=== PATIENT | female | born 2000 | race Caucasian/White ===

== ENCOUNTER 2018-06-02 20:33 | Emergency (ER) | payer OTHER ==
[~2018-06-02] VITALS: Ht 160 cm; Wt 85.3 kg
--- OUTSIDE RECORDS SUMMARY | 2018-06-02 20:39 | XMS REPORT | Continuity of Care Document ---
Author Author [facility] Organization [facility] Address Unknown Phone Unavailable Allergies There is no data. Medications There is no data. Problems Date Dx Coded Attending Type Code Diagnosis Diagnosed By 06/02/2018 KEMAL TRINIDAD MD Ot 719.42 JOINT PAIN-UP/ARM 06/02/2018 KEMAL TRINIDAD MD Ot 959.3 ELB/FOREARM/WRST INJ NOS 06/02/2018 KEMAL TRINIDAD MD Ot E849.0 ACCIDENT IN HOME 06/02/2018 KEMAL TRINIDAD MD Ot E888.9 FALL NOS Procedures There is no data. Results There is no data. Encounters ACCT No. Visit Date/Time Discharge Status Pt. Type Provider Facility Loc./Unit Complaint [id number] 10/04/2013 15:03:00 10/04/2013 23:59:59 CLS Outpatient KEMAL TRINIDAD MD [facility] RAD RT ELBOW PAIN [id number] 06/02/2018 20:35:00 ACT Emergency REBEKAH ARDON DO [facility] ER CHEST PAIN,ABD PAIN
[2018-06-02] MEDS ORDERED: KETOROLAC 30 MG/ML VIAL IVP ONE (21:15)
[2018-06-02] MEDS ORDERED: ONDANSETRON 4 MG/2 ML (SDV) Z0FRAN IVP ONE (21:15)
[2018-06-02] MEDS ORDERED: fentaNYL INJECTION 100 MCG/2 ML AMP IVP ONE ×2 (21:15→22:30)
[2018-06-02] MEDS ORDERED: NS IV 1000 ML 1,000 ML IV SCH (21:15)
--- NOTE | 2018-06-02 21:25 | ED Abdominal Pain ---
General Stated Complaint: CHEST PAIN,ABD PAIN Source of Information: Patient Exam Limitations: No Limitations History of Present Illness Date Seen by Provider: Jun 02, 2018 Time Seen by Provider: 21:24 Initial Comments To ER per private vehicle with reports of right upper quadrant abdominal pain for the past 2-3 days, central chest pain since earlier today. No fevers or chills. She has had associated nausea. No history of this pain ever before. She states the pain was 12 out of 10 earlier and it had her crying but currently she rates it a 7 out of 10. Timing/Duration: 1-2 Days Severity/Quality: Moderate Location: RUQ Radiation: Chest Activities at Onset: None Allergies and Home Medications Allergies Coded Allergies: No Known Drug Allergies (Unverified , 06/02/18) Patient Home Medication List Home Medication List Reviewed: Yes Review of Systems Review of Systems Constitutional: see HPI EENTM: No Symptoms Reported Respiratory: No Symptoms Reported Cardiovascular: No Symptoms Reported Gastrointestinal: See HPI, Abdominal Pain, Nausea Genitourinary: No Symptoms Reported Musculoskeletal: no symptoms reported Skin: no symptoms reported Psychiatric/Neurological: No Symptoms Reported Endocrine: No Symptoms Reported Hematologic/Lymphatic: No Symptoms Reported Past Nhmzgvj-Fiiuzo-Jwlcjk Hx Patient Social History Recent Foreign Travel: Yes ([place]) Contact w/Someone Who Travel: Yes Physical Exam Vital Signs Vital Signs - First Documented 06/02/18 21:13 Temp 98.4 Pulse 94 Resp 18 B/P (MAP) 140/92 (108) Capillary Refill : Height/Weight/BMI Height: '" Weight: lbs. oz. kg; BMI Method: General Appearance: WD/WN, no apparent distress HEENT: PERRL/EOMI, normal ENT inspection Respiratory: no respiratory distress, no accessory muscle use Gastrointestinal: normal bowel sounds, soft, tenderness (right upper quadrant) Extremities: normal range of motion, non-tender Neurologic/Psychiatric: alert, normal mood/affect, oriented x 3 Skin: normal color, warm/dry Progress/Results/Core Measures Results/Orders Lab Results Laboratory Tests Test 06/02/18 21:10 06/02/18 21:23 Range/Units Urine Color YELLOW Urine Clarity CLEAR Urine pH 7 5-9 Urine Specific [place] 1.010 L 1.016-1.022 Urine Protein NEGATIVE NEGATIVE Urine Glucose (UA) NEGATIVE NEGATIVE Urine Ketones NEGATIVE NEGATIVE Urine Nitrite NEGATIVE NEGATIVE Urine Bilirubin NEGATIVE NEGATIVE Urine Urobilinogen NORMAL NORMAL MG/DL Urine Leukocyte Esterase 3+ H NEGATIVE Urine RBC (Auto) NEGATIVE NEGATIVE Urine RBC NONE /HPF Urine WBC 25-50 H /HPF Urine Squamous Epithelial Cells 10-25 H /HPF Urine Crystals NONE /LPF Urine Bacteria FEW H /HPF Urine Casts NONE /LPF Urine Mucus NEGATIVE /LPF Urine Culture Indicated YES White Blood Count 9.3 4.3-11.0 10^3/uL Red Blood Count 4.33 L 4.35-5.85 10^6/uL Hemoglobin 12.7 11.5-16.0 G/DL Hematocrit 36 35-52 % Mean Corpuscular Volume 82 80-99 FL Mean Corpuscular Hemoglobin 29 25-34 PG Mean Corpuscular Hemoglobin Concent 36 32-36 G/DL Red Cell Distribution Width 11.9 10.0-14.5 % Platelet Count 338 130-400 10^3/uL Mean Platelet Volume 9.4 7.4-10.4 FL Neutrophils (%) (Auto) 61 42-75 % Lymphocytes (%) (Auto) 32 12-44 % Monocytes (%) (Auto) 6 0-12 % Eosinophils (%) (Auto) 2 0-10 % Basophils (%) (Auto) 0 0-10 % Neutrophils # (Auto) 5.6 1.8-7.8 X 10^3 Lymphocytes # (Auto) 3.0 1.0-4.0 X 10^3 Monocytes # (Auto) 0.5 0.0-1.0 X 10^3 Eosinophils # (Auto) 0.2 0.0-0.3 10^3/uL Basophils # (Auto) 0.0 0.0-0.1 10^3/uL My Orders Orders - FREDDY MENDOZA APRN Ketorolac Injection (Toradol Injection) (06/02/18 21:15) Fentanyl Injection (Sublimaze Injection (06/02/18 21:15) Ondansetron Injection (Zofran Injectio (06/02/18 21:15) Ns Iv 1000 Ml (Sodium Chloride 0.9%) (06/02/18 21:15) Ct Abdomen/Pelvis W (06/02/18 21:15) Cbc With Automated Diff (06/02/18 21:15) Comprehensive Metabolic Panel (06/02/18 21:15) Ua Culture If Indicated (06/02/18 21:15) Lipase (06/02/18 21:15) Urine Bedside (06/02/18 21:15) Iohexol Injection (Omnipaque 350 Mg/Ml 1 (06/02/18 21:30) Received Contrast (Contrast Received) (06/02/18 21:30) Urine Culture (06/02/18 21:10) Medications Given in ED Current Medications Medications Dose Ordered Sig/Kaci Route Start Time Stop Time Status Last Admin Dose Admin Iohexol 100 ml ONCE ONCE IV 06/02/18 21:30 06/02/18 21:31 DC 06/02/18 21:54 100 ML Vital Signs/I&O 06/02/18 21:13 Temp 98.4 Pulse 94 Resp 18 B/P (MAP) 140/92 (108) Diagnostic Imaging Diagonstic Imaging: CT Comments NAME: COREY PULIDO MED REC#: [id number] PT STATUS: REG ER : 2000 PHYSICIAN: FREDDY MENDOZA APRN ADMIT DATE: 06/02/18/ER Signed Date of Exam:06/02/18 CT ABDOMEN/PELVIS W PROCEDURE: CT abdomen and pelvis with contrast. TECHNIQUE: Multiple contiguous axial images were obtained through the abdomen and pelvis after administration of intravenous contrast. INDICATION: Right upper quadrant pain with nausea. FINDINGS: The air-containing appendix visualized and normal. The uterus, adnexa and urinary bladder unremarkable. There is no evidence for diverticulitis. There is no bowel, biliary or urinary tract obstruction. No free air. No abscess, hematoma or other acute fluid collection. The liver, spleen, adrenals, pancreas and gallbladder appeared normal. The unobstructed kidneys appeared normal. No abdominal wall defect. The osseous structures and lung bases were nonacute. Colonic fecal load was normal. No ileus or obstruction. IMPRESSION: Unremarkable CT abdomen and pelvis. No obstructive features, inflammatory process or acute abnormalities identified. Dictated by: Dictated on workstation # [id number] Dict: 06/02/182147 Trans: 06/02/182152 [id number] Interpreted by: MEGAN SERRANO Electronically signed by: MEGAN SERRANO 06/02/182152 Departure Communication (Admissions) NAME: COREY PULIDO MED REC#: [id number] PT STATUS: REG ER : 2000 PHYSICIAN: FREDDY MENDOZA APRN ADMIT DATE: 06/02/18/ER Signed Date of Exam:06/02/18 CT ABDOMEN/PELVIS W PROCEDURE: CT abdomen and pelvis with contrast. TECHNIQUE: Multiple contiguous axial images were obtained through the abdomen and pelvis after administration of intravenous contrast. INDICATION: Right upper quadrant pain with nausea. FINDINGS: The air-containing appendix visualized and normal. The uterus, adnexa and urinary bladder unremarkable. There is no evidence for diverticulitis. There is no bowel, biliary or urinary tract obstruction. No free air. No abscess, hematoma or other acute fluid collection. The liver, spleen, adrenals, pancreas and gallbladder appeared normal. The unobstructed kidneys appeared normal. No abdominal wall defect. The osseous structures and lung bases were nonacute. Colonic fecal load was normal. No ileus or obstruction. IMPRESSION: Unremarkable CT abdomen and pelvis. No obstructive features, inflammatory process or acute abnormalities identified. Dictated by: Dictated on workstation # [id number] Dict: 06/02/182147 Trans: 06/02/182152 [id number] Interpreted by: MEGAN SERRANO Electronically signed by: MEGAN SERRANO 06/02/182152 Impression Primary Impression: Right upper quadrant abdominal pain Additional Impression: Urinary tract infection Qualified Codes: N30.00 - Acute cystitis without hematuria Disposition: 01 HOME, SELF-CARE Condition: Stable Departure-Patient Inst. Decision time for Depature: 21:25 Referrals: RAJWINDER,LOCAL PHYSICIAN (PCP) Primary Care Physician FAM ROACH (Family) Primary Care Physician Patient Instructions: Urinary Tract Infection, Adult (DC) Add. Discharge Instructions: 1. Follow-up with your regular healthcare provider later this week to discuss obtaining an ultrasound of the gallbladder. In the meantime low-fat bland diet without dairy products, pain medication as needed. Antibiotic as directed for the bladder infection. Scripts Pantoprazole Sodium (Protonix) 40 Mg Tablet. 40 MG PO DAILY, #20 TAB Prov: FREDDY MENDOZA APRN 06/02/18 Sulfamethoxazole/Trimethoprim (Bactrim Ds Tablet) 1 Each Tablet 1 EACH PO BID, #10 TAB Prov: FREDDY MENDOZA APRN 06/02/18 Work/School Note: Work Release Form Date Seen in the Emergency Department: Jun 02, 2018 Return to Work: Jun 04, 2018 FREDDY MENDOZA APRN Jun 02, 2018 21:25
[2018-06-02 21:30] LABS: BILIRUBIN,URINE NEGATIVE (NEGATIVE); CLARITY,URINE CLEAR; COLOR,URINE YELLOW; GLUCOSE, URINE (UA) NEGATIVE (NEGATIVE); KETONES,URINE NEGATIVE (NEGATIVE); NITRITE,URINE NEGATIVE (NEGATIVE); PROTEIN,URINE NEGATIVE (NEGATIVE); UROBILINOGEN,URINE NORMAL (NORMAL)
[2018-06-02] MEDS ORDERED: IOHEXOL 350 MG/ML 100 ML (OMNIPAQUE 350) VIAL IV ONE (21:30)
[2018-06-02] MEDS ORDERED: RECEIVED CONTRAST 20 ML VIAL IV SCH (21:30)
[2018-06-02 21:32] LABS: LEUKOCYTE ESTERASE ,URINE 3+ (NEGATIVE); PH,URINE 7 (5-9)
[2018-06-02 21:38] LABS: BASOPHILS % (AUTO) 0 % (0-10); EOSINOPHILS # (AUTO) 0.2 10^3/uL (0.0-0.3); EOSINOPHILS % (AUTO) 2 % (0-10); HEMATOCRIT 36 % (35-52); HEMOGLOBIN 12.7 G/DL (11.5-16.0); LYMPHOCYTES % (AUTO) 32 % (12-44); MEAN CORPUSCULAR HEMOGLOBIN 29 PG (25-34); MEAN CORPUSCULAR HGB CONC 36 G/DL (32-36); MEAN CORPUSCULAR VOLUME 82 FL (80-99); MEAN PLATELET VOLUME 9.4 FL (7.4-10.4); MONOCYTES # (AUTO) 0.5 X 10^3 (0.0-1.0); MONOCYTES % (AUTO) 6 % (0-12); NEUTROPHILS # (AUTO) 5.6 X 10^3 (1.8-7.8); NEUTROPHILS % (AUTO) 61 % (42-75); PLATELET COUNT 338 10^3/uL (130-400); RED CELL DISTRIBUTION WIDTH 11.9 % (10.0-14.5); WHITE BLOOD COUNT 9.3 10^3/uL (4.3-11.0)
[2018-06-02 21:41] LABS: BACTERIA,URINE FEW /HPF; WBC,URINE 25-50 /HPF
--- NOTE | 2018-06-02 21:53 | Diagnostic Imaging Report ---
PROCEDURE: CT abdomen and pelvis with contrast. TECHNIQUE: Multiple contiguous axial images were obtained through the abdomen and pelvis after administration of intravenous contrast. INDICATION: Right upper quadrant pain with nausea. FINDINGS: The air-containing appendix visualized and normal. The uterus, adnexa and urinary bladder unremarkable. There is no evidence for diverticulitis. There is no bowel, biliary or urinary tract obstruction. No free air. No abscess, hematoma or other acute fluid collection. The liver, spleen, adrenals, pancreas and gallbladder appeared normal. The unobstructed kidneys appeared normal. No abdominal wall defect. The osseous structures and lung bases were nonacute. Colonic fecal load was normal. No ileus or obstruction. IMPRESSION: Unremarkable CT abdomen and pelvis. No obstructive features, inflammatory process or acute abnormalities identified. Dictated by: Dictated on workstation # [id number]
[2018-06-02] MEDS ORDERED: SULF1TAB35 PO (21:58)
[2018-06-02] MEDS ORDERED: PANT40TA2 PO (21:58)
[2018-06-02 22:06] LABS: ALANINE AMINOTRANSFERASE 12 U/L (0-55); ALBUMIN 4.4 GM/DL (3.2-4.5); ALKALINE PHOSPHATASE 73 U/L (40-136); BILIRUBIN,TOTAL 0.3 MG/DL (0.1-1.0); BUN/CREATININE RATIO 11; CALCIUM 9.3 MG/DL (8.5-10.1); CARBON DIOXIDE 22 MMOL/L (21-32); CHLORIDE 108 MMOL/L (98-107); CREATININE SERUM 0.76 MG/DL (0.60-1.30); GFR ESTIMATED > 60; GLUCOSE 103 MG/DL (70-105); LIPASE 20 U/L (8-78); POTASSIUM 3.6 MMOL/L (3.6-5.0); SODIUM 141 MMOL/L (135-145); TOTAL PROTEIN 7.5 GM/DL (6.4-8.2)
[2018-06-02] MEDS ORDERED: RX-ONDANSETRON 4 MG ODT (ZOFRAN) PPK #4 PO STA (22:26)
[2018-06-02] MEDS ORDERED: TRIM/SULFAMETH 160/800 (SEPTRA DS) TAB PO ONE (22:30)
[2018-06-02] MEDS ORDERED: RX-HYDROCODONE/APAP 5/325 MG #4 TAB PK PO PRN (22:30)
[2018-06-02 22:55] VITALS: BP 138/89
[2018-06-05] MEDS ORDERED: ACHD5005 PO (10:59)
== END 2018-06-02 22:58 | disposition home or self-care (01) ==
LOC: EDUNIT# 20:33 → ER 20:35
DX: N39.0 Urinary tract infection, site not specified (principal)
CPT/HCPCS: 36415; 74177; 80053; 81000; 83690; 84703; 85025; 87088

== ENCOUNTER 2018-06-04 16:34 | Day surgery (SDC) | payer OTHER ==
[~2018-06-04] VITALS: Ht 160 cm; Wt 86.7 kg
[~2018-06-04 16:34] MED LIST: PANT40TA2 PO; SULF1TAB35 PO
--- OUTSIDE RECORDS SUMMARY | 2018-06-04 16:38 | XMS REPORT | Continuity of Care Document ---
Author Author [facility] Organization [facility] Address Unknown Phone Unavailable Allergies Active Description Code Type Severity Reaction Onset Reported/Identified Relationship to Patient Clinical Status Yes No Known Drug Allergies [id number] Drug Allergy Unknown N/A 06/02/2018 Medications There is no data. Problems Date Dx Coded Attending Type Code Diagnosis Diagnosed By 06/02/2018 KEMAL TRINIDAD MD Ot 719.42 JOINT PAIN-UP/ARM 06/02/2018 KEMAL TRINIDAD MD Ot 959.3 ELB/FOREARM/WRST INJ NOS 06/02/2018 KEMAL TRINIDAD MD Ot E849.0 ACCIDENT IN HOME 06/02/2018 KEMAL TRINIDAD MD Ot E888.9 FALL NOS 06/02/2018 KEMAL TRINIDAD MD Ot 719.42 JOINT PAIN-UP/ARM 06/02/2018 KEMAL TRINIDAD MD Ot 959.3 ELB/FOREARM/WRST INJ NOS 06/02/2018 KEMAL TRINIDAD MD Ot E849.0 ACCIDENT IN HOME 06/02/2018 KEMAL TRINIDAD MD Ot E888.9 FALL NOS 06/04/2018 FREDDY MENDOZA APRN Ot N39.0 URINARY TRACT INFECTION, SITE NOT SPECIF 06/04/2018 FREDDY MENDOZA APRN Ot R10.11 RIGHT UPPER QUADRANT PAIN Procedures There is no data. Results Test Result Range Complete urinalysis with reflex to culture - 06/02/18 21:10 Urine color determination YELLOW NRG Urine clarity determination CLEAR NRG Urine pH measurement by test strip 7 5-9 Specific gravity of urine by test strip 1.010 1.016- 1.022 Urine protein assay by test strip, semi-quantitative NEGATIVE NEGATIVE Urine glucose detection by automated test strip NEGATIVE NEGATIVE Erythrocytes detection in urine sediment by light microscopy NEGATIVE NEGATIVE Urine ketones detection by automated test strip NEGATIVE NEGATIVE Urine nitrite detection by test strip NEGATIVE NEGATIVE Urine total bilirubin detection by test strip NEGATIVE NEGATIVE Urine urobilinogen measurement by automated test strip (mass/volume) NORMAL NORMAL Urine leukocyte esterase detection by dipstick 3+ NEGATIVE Automated urine sediment erythrocyte count by microscopy (number/high power field) NONE NRG Automated urine sediment leukocyte count by microscopy (number/high power field ) [HPF] NRG Bacteria detection in urine sediment by light microscopy FEW NRG Squamous epithelial cells detection in urine sediment by light microscopy 10-25 NRG Crystals detection in urine sediment by light microscopy NONE NRG Casts detection in urine sediment by light microscopy NONE NRG Mucus detection in urine sediment by light microscopy NEGATIVE NRG Complete urinalysis with reflex to culture YES NRG Bacterial urine culture - 06/02/18 21:10 Bacterial urine culture 3 OR MORE NRG COLONY COUNT >100,000/ML NRG FTX;REPORTABLE (GRAM POSITIVE) SUGGESTING PROBABLE NRG FREE TEXT ENTRY 2 COLLECTION CONTAMINATION WITH SKIN ELISE NRG FREE TEXT ENTRY 3 NO SUSCEPTIBILITY PERFORMED NRG Complete blood count (CBC) with automated white blood cell (WBC) differential - 06/02/18 21:23 Blood leukocytes automated count (number/volume) 9.3 10*3/uL 4.3-11.0 Blood erythrocytes automated count (number/volume) 4.33 10*6/uL 4.35-5.85 Venous blood hemoglobin measurement (mass/volume) 12.7 g/dL 11.5-16.0 Blood hematocrit (volume fraction) 36 % 35-52 Automated erythrocyte mean corpuscular volume 82 [foz_us] 80-99 Automated erythrocyte mean corpuscular hemoglobin (mass per erythrocyte) 29 pg 25-34 Automated erythrocyte mean corpuscular hemoglobin concentration measurement ( mass/volume) 36 g/dL 32-36 Automated erythrocyte distribution width ratio 11.9 % 10.0-14.5 Automated blood platelet count (count/volume) 338 10*3/uL 130-400 Automated blood platelet mean volume measurement 9.4 [foz_us] 7.4-10.4 Automated blood neutrophils/100 leukocytes 61 % 42-75 Automated blood lymphocytes/100 leukocytes 32 % 12-44 Blood monocytes/100 leukocytes 6 % 0-12 Automated blood eosinophils/100 leukocytes 2 % 0-10 Automated blood basophils/100 leukocytes 0 % 0-10 Blood neutrophils automated count (number/volume) 5.6 10*3 1.8-7.8 Blood lymphocytes automated count (number/volume) 3.0 10*3 1.0-4.0 Blood monocytes automated count (number/volume) 0.5 10*3 0.0-1.0 Automated eosinophil count 0.2 10*3/uL 0.0-0.3 Automated blood basophil count (count/volume) 0.0 10*3/uL 0.0-0.1 Comprehensive metabolic panel - 06/02/18 21:23 Serum or plasma sodium measurement (moles/volume) 141 mmol/L 135-145 Serum or plasma potassium measurement (moles/volume) 3.6 mmol/L 3.6-5.0 Serum or plasma chloride measurement (moles/volume) 108 mmol/L 98-107 Carbon dioxide 22 mmol/L 21-32 Serum or plasma anion gap determination (moles/volume) 11 mmol/L 5-14 Serum or plasma urea nitrogen measurement (mass/volume) 8 mg/dL 7-18 Serum or plasma creatinine measurement (mass/volume) 0.76 mg/dL 0.60-1.30 Serum or plasma urea nitrogen/creatinine mass ratio 11 NRG Serum or plasma creatinine measurement with calculation of estimated glomerular filtration rate > NRG Serum or plasma glucose measurement (mass/volume) 103 mg/dL 70-105 Serum or plasma calcium measurement (mass/volume) 9.3 mg/dL 8.5-10.1 Serum or plasma total bilirubin measurement (mass/volume) 0.3 mg/dL 0.1-1.0 Serum or plasma alkaline phosphatase measurement (enzymatic activity/volume) 73 U/L 40-136 Serum or plasma aspartate aminotransferase measurement (enzymatic activity/ volume) 16 U/L 5-34 Serum or plasma alanine aminotransferase measurement (enzymatic activity/volume ) 12 U/L 0-55 Serum or plasma protein measurement (mass/volume) 7.5 g/dL 6.4-8.2 Serum or plasma albumin measurement (mass/volume) 4.4 g/dL 3.2-4.5 CALCIUM CORRECTED 9.0 mg/dL 8.5-10.1 Lipase - 06/02/18 21:23 Lipase 20 U/L 8-78 Encounters ACCT No. Visit Date/Time Discharge Status Pt. Type Provider Facility Loc./Unit Complaint [id number] 06/02/2018 20:35:00 06/02/2018 22:58:00 DIS Outpatient FREDDY MENDOZA APRN [facility] ER CHEST PAIN,ABD PAIN [id number] 10/04/2013 15:03:00 10/04/2013 23:59:59 CLS Outpatient AMOS MORALES, KEMAL Guerrero [facility] RAD RT ELBOW PAIN [id number] 06/04/2018 16:35:00 ACT Emergency SHWETA MORALES, ELDON Rosen [facility] ER ABD PAIN,VOMITTING
[2018-06-04] MEDS ORDERED: NS IV 1000 ML 1,000 ML IV SCH ×2 (17:00→19:00)
[2018-06-04] MEDS ORDERED: fentaNYL INJECTION 100 MCG/2 ML AMP IVP ONE (17:00)
[2018-06-04] MEDS ORDERED: ONDANSETRON 4 MG/2 ML (SDV) Z0FRAN IVP ONE (17:00)
[2018-06-04 17:17] LABS: BASOPHILS % (AUTO) 0 % (0-10); EOSINOPHILS # (AUTO) 0.1 10^3/uL (0.0-0.3); EOSINOPHILS % (AUTO) 1 % (0-10); HEMATOCRIT 35 % (35-52); HEMOGLOBIN 12.4 G/DL (11.5-16.0); LYMPHOCYTES # (AUTO) 1.5 X 10^3 (1.0-4.0); LYMPHOCYTES % (AUTO) 19 % (12-44); MEAN CORPUSCULAR HEMOGLOBIN 29 PG (25-34); MEAN CORPUSCULAR HGB CONC 36 G/DL (32-36); MEAN CORPUSCULAR VOLUME 82 FL (80-99); MEAN PLATELET VOLUME 9.6 FL (7.4-10.4); MONOCYTES # (AUTO) 0.3 X 10^3 (0.0-1.0); MONOCYTES % (AUTO) 4 % (0-12); NEUTROPHILS % (AUTO) 77 % (42-75); PLATELET COUNT 324 10^3/uL (130-400); RED CELL DISTRIBUTION WIDTH 11.8 % (10.0-14.5); WHITE BLOOD COUNT 7.8 10^3/uL (4.3-11.0)
--- NOTE | 2018-06-04 17:21 | ED Abdominal Pain ---
General Chief Complaint: Abdominal/GI Problems Stated Complaint: ABD PAIN,VOMITTING Nursing Triage Note: THE PT IS AMBULATORY TO THE ROOM WITHOUT DIFFICULTY. NO DISTRESS IS SEEN ON ARRIVAL. LOC IS NORMAL FOR THE PT. THE PT WAS SEEN HERE ON THU. Sepsis Screen: No Definite Risk Source of Information: Patient Exam Limitations: No Limitations History of Present Illness Date Seen by Provider: Jun 04, 2018 Time Seen by Provider: 16:40 Initial Comments 18-year-old female who presents to the emergency room with complaints of increased nausea, vomiting and right upper quadrant abdominal pain. She was seen and evaluated in the emergency room 2 days ago and was instructed to have an outpatient ultrasound for evaluation of her gallbladder and she had an appointment at [facility] and they were going to set up an outpatient ultrasound for her. She was prescribed Protonix and Carafate for potential ulcer. She denies fevers. Timing/Duration: 4-5 Days Associated Symptoms: Nausea/Vomiting Allergies and Home Medications Allergies Coded Allergies: No Known Drug Allergies (Unverified , 06/02/18) Home Medications Pantoprazole Sodium 40 Mg Tablet.dr, 40 MG PO DAILY Prescribed by: FREDDY MENDOZA on 06/02/182157 Sulfamethoxazole/Trimethoprim 1 Each Tablet, 1 EACH PO BID Prescribed by: FREDDY MENDOZA on 06/02/182157 Patient Home Medication List Home Medication List Reviewed: Yes Review of Systems Review of Systems Constitutional: no symptoms reported, see HPI Gastrointestinal: See HPI, Abdominal Pain, Nausea, Vomiting All Other Systems Reviewed Negative Unless Noted: Yes Past Nvvonwo-Yihrxi-Bblxpp Hx Past Med/Social Hx: Reviewed Nursing Past Med/Soc Hx Patient Social History Recent Foreign Travel: No Contact w/Someone Who Travel: No Recent Infectious Disease Expo: No Recent Hopitalizations: No Physical Abuse: No Sexual Abuse: No Mistreated: No Fear: No Seasonal Allergies Seasonal Allergies: No Past Medical History Surgeries: Yes (WISDOM TEETH REMOVED) Respiratory: No Cardiac: No Neurological: No Genitourinary: Yes (UTI, PYELONEPHRITIS) Musculoskeletal: No Endocrine: No HEENT: No Cancer: No Psychosocial: No Blood Disorders: No Family Medical History Reviewed Nursing Family Hx Physical Exam Vital Signs Vital Signs - First Documented 06/04/18 16:45 Temp 98.2 Pulse 80 Resp 16 B/P (MAP) 136/67 (90) Capillary Refill : Less Than 3 Seconds Height/Weight/BMI Height: 5'5.00" Weight: 185lbs. oz. 83.683062zp; BMI Method:Estimated General Appearance: WD/WN, no apparent distress Respiratory: chest non-tender, lungs clear, normal breath sounds, no respiratory distress, no accessory muscle use Cardiovascular: normal peripheral pulses, regular rate, rhythm, no edema, no gallop, no JVD, no murmur Gastrointestinal: normal bowel sounds, soft, no organomegaly, no pulsatile mass , tenderness (right upper quadrant tenderness) Extremities: normal capillary refill Neurologic/Psychiatric: alert, normal mood/affect, oriented x 3 Skin: normal color, warm/dry Progress/Results/Core Measures Results/Orders Lab Results Laboratory Tests Test 06/04/18 17:00 Range/Units White Blood Count 7.8 4.3-11.0 10^3/uL Red Blood Count 4.26 L 4.35-5.85 10^6/uL Hemoglobin 12.4 11.5-16.0 G/DL Hematocrit 35 35-52 % Mean Corpuscular Volume 82 80-99 FL Mean Corpuscular Hemoglobin 29 25-34 PG Mean Corpuscular Hemoglobin Concent 36 32-36 G/DL Red Cell Distribution Width 11.8 10.0-14.5 % Platelet Count 324 130-400 10^3/uL Mean Platelet Volume 9.6 7.4-10.4 FL Neutrophils (%) (Auto) 77 H 42-75 % Lymphocytes (%) (Auto) 19 12-44 % Monocytes (%) (Auto) 4 0-12 % Eosinophils (%) (Auto) 1 0-10 % Basophils (%) (Auto) 0 0-10 % Neutrophils # (Auto) 6.0 1.8-7.8 X 10^3 Lymphocytes # (Auto) 1.5 1.0-4.0 X 10^3 Monocytes # (Auto) 0.3 0.0-1.0 X 10^3 Eosinophils # (Auto) 0.1 0.0-0.3 10^3/uL Basophils # (Auto) 0.0 0.0-0.1 10^3/uL Sodium Level 135 135-145 MMOL/L Potassium Level 3.7 3.6-5.0 MMOL/L Chloride Level 104 98-107 MMOL/L Carbon Dioxide Level 20 L 21-32 MMOL/L Anion Gap 11 5-14 MMOL/L Blood Urea Nitrogen 9 7-18 MG/DL Creatinine 0.83 0.60-1.30 MG/DL Estimat Glomerular Filtration Rate > 60 BUN/Creatinine Ratio 11 Glucose Level 81 70-105 MG/DL Calcium Level 9.2 8.5-10.1 MG/DL Corrected Calcium 9.0 8.5-10.1 MG/DL Total Bilirubin 0.4 0.1-1.0 MG/DL Aspartate Amino Transf (AST/SGOT) 19 5-34 U/L Alanine Aminotransferase (ALT/SGPT) 14 0-55 U/L Alkaline Phosphatase 66 40-136 U/L Total Protein 7.1 6.4-8.2 GM/DL Albumin 4.3 3.2-4.5 GM/DL Amylase Level 56 25-125 U/L Lipase 17 8-78 U/L Serum Test, Qualitative NEGATIVE NEGATIVE My Orders Orders - BATOOL DOMINGO Us Gallbladder [id number] (06/04/18 16:47) Comprehensive Metabolic Panel (06/04/18 16:47) Lipase (06/04/18 16:47) Amylase (06/04/18 16:47) Ua Culture If Indicated (06/04/18 16:47) Hcg,Qualitative Serum (06/04/18 16:47) Saline Lock/Iv-Start (06/04/18 16:47) Cbc With Automated Diff (06/04/18 16:47) Fentanyl Injection (Sublimaze Injection (06/04/18 17:00) Ns Iv 1000 Ml (Sodium Chloride 0.9%) (06/04/18 17:00) Ondansetron Injection (Zofran Injectio (06/04/18 17:00) Medications Given in ED Current Medications Medications Dose Ordered Sig/Kaci Route Start Time Stop Time Status Last Admin Dose Admin Fentanyl Citrate 50 mcg ONCE ONCE IVP 06/04/18 17:00 06/04/18 17:01 DC 06/04/18 17:08 50 MCG Ondansetron HCl 4 mg ONCE ONCE IVP 06/04/18 17:00 06/04/18 17:01 DC 06/04/18 17:07 4 MG Vital Signs/I&O 06/04/18 16:45 Temp 98.2 Pulse 80 Resp 16 B/P (MAP) 136/67 (90) Blood Pressure Mean: 90 Progress Progress Note : Time: 17:35 Progress Note I have seen and evaluated the patient. I've discussed the case with Dr. Aldana and he would like the patient admitted as an observation status and plan for cholecystectomy in the morning he is in the emergency room at this time to evaluate the patient. The patient's pain and nausea has improved after medication. She agrees with plan of care, plans for discharge, return precautions were given. Departure Communication (Admissions) Time/Spoke to Admitting Phy: 17:38 Dr. Aldana Impression Primary Impression: Cholelithiasis Disposition: ADMITTED INPATIENT Condition: Stable/Unchanged Admissions Decision to Admit Reason: Admit from ER (General) Decision to Admit/Date: Jun 04, 2018 Time/Decision to Admit Time: 17:38 Departure-Patient Inst. Referrals: NO,LOCAL PHYSICIAN (PCP) Primary Care Physician FAM ROACH (Family) Primary Care Physician BATOOL DOMINGO Jun 04, 2018 17:21
[2018-06-04 17:42] LABS: ALANINE AMINOTRANSFERASE 14 U/L (0-55); ALBUMIN 4.3 GM/DL (3.2-4.5); ALKALINE PHOSPHATASE 66 U/L (40-136); AMYLASE 56 U/L (25-125); BILIRUBIN,TOTAL 0.4 MG/DL (0.1-1.0); BUN/CREATININE RATIO 11; CALCIUM 9.2 MG/DL (8.5-10.1); CARBON DIOXIDE 20 MMOL/L (21-32); CHLORIDE 104 MMOL/L (98-107); CREATININE SERUM 0.83 MG/DL (0.60-1.30); GFR ESTIMATED > 60; GLUCOSE 81 MG/DL (70-105); LIPASE 17 U/L (8-78); POTASSIUM 3.7 MMOL/L (3.6-5.0); SODIUM 135 MMOL/L (135-145); TOTAL PROTEIN 7.1 GM/DL (6.4-8.2)
--- NOTE | 2018-06-04 18:01 | Diagnostic Imaging Report ---
PROCEDURE: US Gallbladder. TECHNIQUE: Multiple real-time grayscale images were obtained over the right upper quadrant in various projections. INDICATION: Abdominal pain. FINDINGS: There are no prior ultrasound examinations available for comparison. The CT abdomen/pelvis exam of 06/02/2018 failed to show any sign of an acute abnormality. On this study, however, there are multiple gallstones within the gallbladder. The gallbladder wall is not thickened measuring 3 mm (normal 3 mm or less). There is no pericholecystic fluid to suggest acute cholecystitis. The common bile duct is not dilated. The liver and right kidney are unremarkable. The pancreas is not well visualized. There is no mass or free fluid collection evident. IMPRESSION: 1. There is cholelithiasis, but there is no evidence for acute cholecystitis. 2. If clinical concern regarding an acute abnormality of the gallbladder persists, then a nuclear medicine hepatobiliary scan will be recommended. Dictated by: Dictated on workstation # [id number]
--- OUTSIDE RECORDS SUMMARY | 2018-06-04 18:17 | XMS REPORT | Continuity of Care Document ---
Author Author [facility] Organization [facility] Address Unknown Phone Unavailable Allergies Active Description Code Type Severity Reaction Onset Reported/Identified Relationship to Patient Clinical Status Yes No Known Drug Allergies [id number] Drug Allergy Unknown N/A 06/02/2018 Medications There [...] - 06/02/18 21:23 Lipase 20 U/L 8-78 Complete blood count (CBC) with automated white blood cell (WBC) differential - 06/04/18 17:00 Blood leukocytes automated count (number/volume) 7.8 10*3/uL 4.3-11.0 Blood erythrocytes automated count (number/volume) 4.26 10*6/uL 4.35-5.85 Venous blood hemoglobin measurement (mass/volume) 12.4 g/dL 11.5-16.0 Blood hematocrit (volume fraction) 35 % 35-52 Automated erythrocyte mean corpuscular volume 82 [foz_us] 80-99 Automated erythrocyte mean corpuscular hemoglobin (mass per erythrocyte) 29 pg 25-34 Automated erythrocyte mean corpuscular hemoglobin concentration measurement ( mass/volume) 36 g/dL 32-36 Automated erythrocyte distribution width ratio 11.8 % 10.0-14.5 Automated blood platelet count (count/volume) 324 10*3/uL 130-400 Automated blood platelet mean volume measurement 9.6 [foz_us] 7.4-10.4 Automated blood neutrophils/100 leukocytes 77 % 42-75 Automated blood lymphocytes/100 leukocytes 19 % 12-44 Blood monocytes/100 leukocytes 4 % 0-12 Automated blood eosinophils/100 leukocytes 1 % 0-10 Automated blood basophils/100 leukocytes 0 % 0-10 Blood neutrophils automated count (number/volume) 6.0 10*3 1.8-7.8 Blood lymphocytes automated count (number/volume) 1.5 10*3 1.0-4.0 Blood monocytes automated count (number/volume) 0.3 10*3 0.0-1.0 Automated eosinophil count 0.1 10*3/uL 0.0-0.3 Automated blood basophil count (count/volume) 0.0 10*3/uL 0.0-0.1 Serum or plasma choriogonadotropin ( test) detection - 06/04/18 17:00 Serum or plasma choriogonadotropin ( test) detection NEGATIVE NEGATIVE Comprehensive metabolic panel - 06/04/18 17:00 Serum or plasma sodium measurement (moles/volume) 135 mmol/L 135-145 Serum or plasma potassium measurement (moles/volume) 3.7 mmol/L 3.6-5.0 Serum or plasma chloride measurement (moles/volume) 104 mmol/L 98-107 Carbon dioxide 20 mmol/L 21-32 Serum or plasma anion gap determination (moles/volume) 11 mmol/L 5-14 Serum or plasma urea nitrogen measurement (mass/volume) 9 mg/dL 7-18 Serum or plasma creatinine measurement (mass/volume) 0.83 mg/dL 0.60-1.30 Serum or plasma urea nitrogen/creatinine mass ratio 11 NRG Serum or plasma creatinine measurement with calculation of estimated glomerular filtration rate > NRG Serum or plasma glucose measurement (mass/volume) 81 mg/dL 70-105 Serum or plasma calcium measurement (mass/volume) 9.2 mg/dL 8.5-10.1 Serum or plasma total bilirubin measurement (mass/volume) 0.4 mg/dL 0.1-1.0 Serum or plasma alkaline phosphatase measurement (enzymatic activity/volume) 66 U/L 40-136 Serum or plasma aspartate aminotransferase measurement (enzymatic activity/ volume) 19 U/L 5-34 Serum or plasma alanine aminotransferase measurement (enzymatic activity/volume ) 14 U/L 0-55 Serum or plasma protein measurement (mass/volume) 7.1 g/dL 6.4-8.2 Serum or plasma albumin measurement (mass/volume) 4.3 g/dL 3.2-4.5 CALCIUM CORRECTED 9.0 mg/dL 8.5-10.1 Serum or plasma amylase measurement (enzymatic activity/volume) - 06/04/18 17: 00 Serum or plasma amylase measurement (enzymatic activity/volume) 56 U /L 25-125 Lipase - 06/04/18 17:00 Lipase 17 U/L 8-78 Encounters ACCT No. Visit Date/Time Discharge Status Pt. Type Provider Facility Loc./Unit Complaint [id number] 06/02/2018 20:35:00 06/02/2018 22:58:00 DIS Outpatient FREDDY MENDOZA APRN [facility] ER CHEST PAIN,ABD PAIN [id number] 10/04/2013 15:03:00 10/04/2013 23:59:59 CLS Outpatient KEMAL TRINIDAD MD [facility] RAD RT ELBOW PAIN [id number] 06/04/2018 18:00:00 ACT Inpatient YASMANY MORALES, KEYA Mccann [facility] 4TH CHOLELITHIASIS
[2018-06-04 18:31] VITALS: BP 125/72
[2018-06-04] MEDS ORDERED: PIPERACILLIN/TAZO 4.5 GM/NS 100 ML IV NR ×2 (19:00)
[2018-06-04] MEDS ORDERED: fentaNYL INJECTION 100 MCG/2 ML AMP IV PRN (19:00)
[2018-06-04] MEDS ORDERED: CATHETER FLUSH 10 ML SYR IV PRN (19:00)
--- NOTE | 2018-06-04 19:00 | NUR ---
COREY PULIDO admitted to room 430-1, with an admitting diagnosis of cholelithiasis, on 06/04/18 from ED via WC, accompanied by significant other and ED staff member.COREY PULIDO introduced to surroundings, call light, bed controls, phone, TV, temperature control, lights, meal times, smoking policy, visitor policy, side rail policy, bathrooms and showers. Patient Rights given to patient in the handbook. COREY PULIDO verbalizes understanding that [facility] is not responsible for the loss or damage to any personal effects or valuables that are kept in the patients posession during their hospitalization. COREY PULIDO verbalizes understanding of Interdisciplinary Patient Education. Patient and/or family were informed about the Rapid Response Team and its purpose. Patient plan of care discussed with patient and no questions or concerns at this time.
--- NOTE | 2018-06-04 19:12 | History & Physicial ---
History of Present Illness History of Present Illness Reason for visit/HPI right upper quadrant pain of 10 days duration. Ultrasound has confirmed gallstones with slight thickening of the gallbladder wall indicating, early acute cholecystitis. Date of Admission Jun 04, 2018 at 18:00 Date Seen by a Provider: Jun 04, 2018 Time Seen by a Provider: 17:15 I consulted on this patient on 06/04/18 19:09 Attending Physician Keya Jade MD Admitting Physician No,Local Physician Consult Allergies and Home Medications Allergies Coded Allergies: No Known Drug Allergies (Unverified , 06/02/18) Home Medications Pantoprazole Sodium 40 Mg Tablet.dr, 40 MG PO DAILY Prescribed by: FREDDY MENDOZA on 06/02/182157 Sulfamethoxazole/Trimethoprim 1 Each Tablet, 1 EACH PO BID Prescribed by: FREDDY MENDOZA on 06/02/182157 Patient Home Medication List Home Medication List Reviewed: Yes Past Ovumhlm-Muyuxe-Gtsmfo Hx Patient Social History Marrital Status: single Employed/Student: student, full-time Recent Foreign Travel: Yes ([facility] on Cruise in [facility] [place]) Contact w/other who traveled: Yes Recent Hopitalizations: No Recent Infectious Disease Expo: No Seasonal Allergies Seasonal Allergies: No Surgeries Yes (WISDOM TEETH REMOVED) Respiratory No Cardiovascular No Neurological No Genitourinary Yes (UTI, PYELONEPHRITIS) Musculoskeletal No Endocrine History of Endocrine Disorders: No HEENT History of HEENT Disorders: No Cancer No Psychosocial History of Psychiatric Problem: No Blood Transfusions History of Blood Disorders: No Review of Systems Constitutional: no symptoms reported EENTM: no symptoms reported Respiratory: no symptoms reported Cardiovascular: no symptoms reported Gastrointestinal: see HPI Genitourinary: no symptoms reported Musculoskeletal: no symptoms reported Skin: no symptoms reported Psychiatric/Neurological: No Symptoms Reported Physical Exam Vital Signs Vital Signs - First Documented 06/04/18 06/04/18 16:45 18:27 Temp 98.2 Pulse 80 Resp 16 B/P (MAP) 136/67 (90) Pulse Ox 98 Capillary Refill : Less Than 3 Seconds Height, Weight, BMI Height: 5'3.00" Weight: 191lbs. 4.0oz. 86.513899wr; 33.9 BMI Method:Estimated General Appearance: No Apparent Distress Neck: Normal Inspection Respiratory: Lungs Clear Cardiovascular: Regular Rate, Rhythm Gastrointestinal: Soft, Tenderness Back: Normal Inspection Extremity: Normal Inspection Neurologic/Psychiatric: Alert, Oriented x3 Skin: Warm/Dry Comments tenderness over the right upper quadrant, consistent with Jaimes's sign. Assessment/Plan Assessment and Plan lady with gallstones and features of early acute cholecystitis. LFTs normal. Offered laparoscopic cholecystomy with possible cholangiogram. Operative details, expected recovery, complications of wound infection, bile leak etc. have been discussed thoroughly. Surgery scheduled for tomorrow morning. Admission Diagnosis Admission Status: Observation KEYA JADE MD Jun 04, 2018 19:12
--- NOTE | 2018-06-04 19:13 | Progress Note-Pre Operative ---
Pre-Operative Progress Note H&P Reviewed The H&P was reviewed, patient examined and no changes noted. Date Seen by Provider: Jun 04, 2018 Time Seen by Provider: 17:15 Date H&P Reviewed: Jun 04, 2018 Time H&P Reviewed: 19:12 Pre-Operative Diagnosis: gallstones with acute cholecystitis KEYA JADE MD Jun 04, 2018 19:13
[2018-06-04 20:45] VITALS: BP 124/72
[2018-06-04] MEDS: ONDANSETRON 4 MG/2 ML (SDV) Z0FRAN IV PRN (20:55)
[2018-06-05] VITALS: BP 99/57
[2018-06-05] MEDS ORDERED: PIPERACILLIN/TAZO 4.5 GM/NS 100 ML IV SCH ×2 (01:00)
[2018-06-05 04:20] VITALS: BP 104/64
[2018-06-05 06:18] LABS: BASOPHILS % (AUTO) 0 % (0-10); EOSINOPHILS # (AUTO) 0.1 10^3/uL (0.0-0.3); EOSINOPHILS % (AUTO) 2 % (0-10); HEMATOCRIT 32 % (35-52); HEMOGLOBIN 11.2 G/DL (11.5-16.0); LYMPHOCYTES # (AUTO) 1.8 X 10^3 (1.0-4.0); LYMPHOCYTES % (AUTO) 33 % (12-44); MEAN CORPUSCULAR HEMOGLOBIN 29 PG (25-34); MEAN CORPUSCULAR HGB CONC 35 G/DL (32-36); MEAN CORPUSCULAR VOLUME 83 FL (80-99); MEAN PLATELET VOLUME 9.3 FL (7.4-10.4); MONOCYTES # (AUTO) 0.4 X 10^3 (0.0-1.0); MONOCYTES % (AUTO) 7 % (0-12); NEUTROPHILS # (AUTO) 3.3 X 10^3 (1.8-7.8); NEUTROPHILS % (AUTO) 58 % (42-75); PLATELET COUNT 273 10^3/uL (130-400); RED CELL DISTRIBUTION WIDTH 11.8 % (10.0-14.5); WHITE BLOOD COUNT 5.6 10^3/uL (4.3-11.0)
--- NOTE | 2018-06-05 06:35 | NUR ---
Per pre op protocol, MRSA nasal swab has been collected, consent has been signed and witnessed by this RN and placed in chart, surgical bath has been completed and surgical add on sheet was faxed to surgical staff and copy was given to Shop Supervisor. Addendum: 06/05/18 at 0637 by CARLOS SIFUENTES RN Patient has been NPO since 06/05/18 0000.
[2018-06-05 06:40] LABS: EOSINOPHILS % (MANUAL) 2 %; LYMPHOCYTES % (MANUAL) 34 %; MONOCYTES % (MANUAL) 8 %; NEUTROPHILS % (MANUAL) 56 %; RBC MORPH NORMAL
[2018-06-05 06:44] LABS: ALANINE AMINOTRANSFERASE 12 U/L (0-55); ALBUMIN 3.5 GM/DL (3.2-4.5); ALKALINE PHOSPHATASE 53 U/L (40-136); BILIRUBIN,TOTAL 0.6 MG/DL (0.1-1.0); BUN/CREATININE RATIO 10; CALCIUM 8.4 MG/DL (8.5-10.1); CARBON DIOXIDE 19 MMOL/L (21-32); CHLORIDE 110 MMOL/L (98-107); CREATININE SERUM 0.81 MG/DL (0.60-1.30); GFR ESTIMATED > 60; GLUCOSE 79 MG/DL (70-105); POTASSIUM 3.9 MMOL/L (3.6-5.0); SODIUM 137 MMOL/L (135-145)
[2018-06-05 08:00] VITALS: BP 120/58
[2018-06-05] MEDS ORDERED: fentaNYL INJECTION 100 MCG/2 ML AMP ONE (09:27)
[2018-06-05] MEDS ORDERED: ROCURONIUM 10 MG/ML 5 ML SYRINGE IV ONE (09:27)
[2018-06-05] MEDS ORDERED: DEXAMETHASONE 10 MG/ML (DECADRON) 1 ML VIAL ONE (09:27)
[2018-06-05] MEDS ORDERED: LIDOCAINE PF 2% 5 ML (XYLOCAINE) VIAL ONE (09:27)
[2018-06-05] MEDS ORDERED: ONDANSETRON 4 MG/2 ML (SDV) Z0FRAN ONE (09:27)
[2018-06-05] MEDS ORDERED: SEVOFLURANE (ULTANE) 15 ML INHAL SOLN ONE (09:27)
[2018-06-05] MEDS ORDERED: proPOfol 200 MG/20 ML (DIPRIVAN) VIAL IV ONE (09:27)
[2018-06-05] MEDS ORDERED: MIDAZOLAM 2 MG/2 ML (VERSED) VIAL ONE (09:27)
[2018-06-05] MEDS ORDERED: ONDANSETRON 4 MG/2 ML (SDV) Z0FRAN IVP PRN (09:45)
[2018-06-05] MEDS ORDERED: morphine INJ 10 MG/ML 1ML (SYR OR VIAL) IVP ONE (09:45)
[2018-06-05] MEDS ORDERED: fentaNYL INJECTION 100 MCG/2 ML AMP IVP ONE (09:45)
[2018-06-05] MEDS ORDERED: MEPERIDINE (DEMEROL) INJ 50 MG/ML IVP ONE (09:45)
--- NOTE | 2018-06-05 09:45 | NUR ---
TO OR PER BED
[2018-06-05] MEDS ORDERED: BUP/EPI 0.5% 1:200,000 (SENSORCAINE) 30 ML VIAL ONE (09:47)
[2018-06-05] MEDS: LACTATED RINGERS 1,000 ML IV PRN ×3 (10:12→11:35)
[2018-06-05] MEDS ORDERED: NEOSTIGMINE 1 MG/ML 5 ML SYRINGE ONE (10:25)
[2018-06-05] MEDS ORDERED: GLYCOPYRROLATE 0.2 MG/ML (ROBINUL) 2 ML VIAL ONE (10:25)
[2018-06-05] MEDS ORDERED: morphine INJ 10 MG/ML 1ML (SYR OR VIAL) ONE (10:40)
--- NOTE | 2018-06-05 10:58 | Operative Report ---
Operative Report Date of Procedure/Surgery Jun 05, 2018 Surgeon (s) KEYA JADE MD Roof Designer (s): Kaye Peter ( Med Student III) Post-Operative Diagnosis gallstones Acute cholecystitis Procedure Performed laparoscopic cholecystectomy Description of Procedure Anesthesia Type: General Estimated blood loss (mL): minimal Specimen(s) collected/removed gallbladder Description of the Procedure Indication for the procedure: This lady presented with symptomatic gallstones and clinical features of early acute cholecystitis. She was offered prompt laparoscopic cholecystectomy. Informed consent was obtained after reviewing the operative details and complications of wound infection and bile leak. Description of the procedure: She was placed supine on the operative table and general anesthesia induced. She had received Zosyn, prior to her arrival in the operating room. Sequential compression devices were placed around her legs , to minimize the risk of venous thrombosis. Abdomen was prepared and draped in the usual sterile manner. A supraumbilical incision was made and the linea alba incised vertically. A Hill cannula was placed and carbon dioxide insufflated, to an intra-abdominal pressure of 15 mmHg. Anatomy was visualized using a 30, conventional laparoscope. Gallbladder was tense with signs of early cholecystitis. Under direct view, I placed a 5 mm trocar over the epigastric region, followed by 2 additional 5 mm trocars along the right side. The patient was then turned into reverse Trendelenburg position, with the right side tilted up. The fundus of the gallbladder was retracted cephalad and infundibulum grasped with a pair of grasping forceps. Peritoneum overlying Calot's triangle was incised using the Harmonic scalpel, delineating the cystic duct, which was rather slender, and the cystic artery. Cystic duct was controlled between ligaclips, the stump being reinforced with a PDS Endoloop. Cystic artery was then divided between ligaclips.: Cholecystectomy was completed using Harmonic scalpel. Bleeding from the gallbladder fossa was controlled using cautery. Subhepatic space was irrigated with saline and the gallbladder placed in Endo Catch bag, to be removed via the supraumbilical trocar site. The fascia was then closed using #1 Vicryl. Skin incisions were closed using 4-0 Vicryl, in a subcuticular fashion. 0.5 percent Marcaine with epinephrine was infiltrated along the incisions, both preemptively and at the conclusion of the operation. She tolerated the procedure well, was extubated and taken to the recovery room in a stable condition. Findings of the Procedure see operative report Allergies and Home Medications Allergies Coded Allergies: No Known Drug Allergies (Unverified , 06/02/18) Home Medications Pantoprazole Sodium 40 Mg Tablet.dr, 40 MG PO DAILY Prescribed by: FREDDY MENDOZA on 06/02/182157 Sulfamethoxazole/Trimethoprim 1 Each Tablet, 1 EACH PO BID Prescribed by: FREDDY MENDOZA on 06/02/182157 Patient Home Medication List Home Medication List Reviewed: Yes KEYA JADE MD Jun 05, 2018 10:58
[2018-06-05] MEDS ORDERED: ACHD5005 PO (10:59)
--- NOTE | 2018-06-05 11:00 | Discharge Inst-Simple/Standard ---
Discharge Inst-Standard Discharge Medications New, Converted or Re-Newed RX: RX on Chart Patient Instructions/Follow Up Plan of Care/Instructions/FU: incentive spirometry. Follow-up in 10 days Activity as Tolerated: Yes Discharge Diet: No Restrictions KEYA JADE MD Jun 05, 2018 11:00
[2018-06-05] MEDS ORDERED: LACTATED RINGERS 1,000 ML IV ONE (11:01)
--- NOTE | 2018-06-05 11:55 | NUR ---
RETURNED [facility] R.R. PER BED. ALERT AND COOPERATIVE. SKIN W/D. RATES PAIN 10/10 TO ANTERIOR ABDOMEN . V/S=97.6 P=92 RESP=16 O2 SAT=96 % ON R/A. HL=238/74. FAMILY MEMBERS AT BEDSIDE. DEEP BREATHING AND COUGHING ENCOURAGED. ICE TO INC. AREA. X 4 LARGE BAND AIDES TO ABD. D/I WITH NO DRAINAGE NOTED. IV SITE TO LEFT AC CLEAR WITH IV FLUIDS INFUSING WELL.
[2018-06-05 12:00] VITALS: BP 128/74
[2018-06-05] MEDS: ONDANSETRON 4 MG/2 ML (SDV) Z0FRAN IV PRN (12:37)
--- NOTE | 2018-06-05 13:00 | NUR ---
UP AND AMBULATED IN HALLWAY 150 FEET. SOREN. WELL WITH SLOW MOVEMENTS.
[2018-06-05] MEDS ORDERED: HYDROcodone/APAP 5 MG/325 MG (LORTAB) TAB PO PRN (14:00)
[2018-06-05 15:40] VITALS: BP 127/78
--- NOTE | 2018-06-05 16:00 | NUR ---
UP TO BATHROOM. VOIDED 200 CC DARK REENA URINE.
[2018-06-05 16:30] VITALS: BP 127/78
--- NOTE | 2018-06-05 16:30 | NUR ---
TAKING FLUIDS WELL. NO C/O OF NAUSEA AT THIS TIME. ATE 1/2 OF PANCAKE. SOREN. WELL.
--- NOTE | 2018-06-05 16:30 | NUR ---
COREY PULIDO demonstrates understanding of discharge instructions and accurately returns instructions upon questioning. Copy of Post-Discharge Instructions given to PT. COREY PULIDO is able to manage continuing needs after discharge. Patients belongings returned to PT. Patient discharged from [facility] on 06/05/18 at 1630. COREY PULIDO left floor via W/C, accompanied by STAFF AND FAMILY PER AUTO.
--- NOTE | 2018-06-06 12:51 | Anesthesia-General Post-Op ---
General Patient Condition Mental Status/LOC: Same as Preop Cardiovascular: Satisfactory Nausea/Vomiting: Absent Respiratory: Satisfactory Pain: Controlled Complications: Absent Post Op Complications Complications None Follow Up Care/Instructions Patient Instructions None needed. Anesthesia/Patient Condition Patient Condition Patient is doing well, no complaints, stable vital signs, no apparent adverse anesthesia problems. No complications reported per nursing. MAG GRIMM CRNA Jun 06, 2018 12:51
--- OUTSIDE RECORDS SUMMARY | 2018-06-08 07:28 | XMS REPORT | Continuity of Care Document ---
Author Author [facility] Organization [facility] Address Unknown Phone Unavailable Allergies Active Description Code Type Severity Reaction Onset Reported/Identified Relationship to Patient Clinical Status Yes No Known Drug Allergies [id number] Drug Allergy Unknown N/A 06/02/2018 Medications There [...] - 06/04/18 17:00 Lipase 17 U/L 8-78 Methicillin resistant Staphylococcus aureus (MRSA) screening culture - 22:05 Methicillin resistant Staphylococcus aureus (MRSA) screening culture NEG NRG Blood CBC with ordered manual differential panel - 06/05/18 06:05 Blood leukocytes automated count (number/volume) 5.6 10*3/uL 4.3-11.0 Blood erythrocytes automated count (number/volume) 3.84 10*6/uL 4.35-5.85 Venous blood hemoglobin measurement (mass/volume) 11.2 g/dL 11.5-16.0 Blood hematocrit (volume fraction) 32 % 35-52 Automated erythrocyte mean corpuscular volume 83 [foz_us] 80-99 Automated erythrocyte mean corpuscular hemoglobin (mass per erythrocyte) 29 pg 25-34 Automated erythrocyte mean corpuscular hemoglobin concentration measurement ( mass/volume) 35 g/dL 32-36 Automated erythrocyte distribution width ratio 11.8 % 10.0-14.5 Automated blood platelet count (count/volume) 273 10*3/uL 130-400 Automated blood platelet mean volume measurement 9.3 [foz_us] 7.4-10.4 Automated blood neutrophils/100 leukocytes 58 % 42-75 Automated blood lymphocytes/100 leukocytes 33 % 12-44 Blood monocytes/100 leukocytes 8 % NRG Automated blood eosinophils/100 leukocytes 2 % 0-10 Automated blood basophils/100 leukocytes 0 % 0-10 Blood neutrophils automated count (number/volume) 3.3 10*3 1.8-7.8 Blood lymphocytes automated count (number/volume) 1.8 10*3 1.0-4.0 Blood monocytes automated count (number/volume) 0.4 10*3 0.0-1.0 Automated eosinophil count 0.1 10*3/uL 0.0-0.3 Automated blood basophil count (count/volume) 0.0 10*3/uL 0.0-0.1 Manual blood segmented neutrophils/100 leukocytes 56 % NRG Manual blood lymphocytes/100 leukocytes 34 % NRG Manual eosinophils/100 leukocytes in nose 2 % NRG Blood erythrocyte morphology finding identification [facility] Comprehensive metabolic panel - 06/05/18 06:05 Serum or plasma sodium measurement (moles/volume) 137 mmol/L 135-145 Serum or plasma potassium measurement (moles/volume) 3.9 mmol/L 3.6-5.0 Serum or plasma chloride measurement (moles/volume) 110 mmol/L 98-107 Carbon dioxide 19 mmol/L 21-32 Serum or plasma anion gap determination (moles/volume) 8 mmol/L 5-14 Serum or plasma urea nitrogen measurement (mass/volume) 8 mg/dL 7-18 Serum or plasma creatinine measurement (mass/volume) 0.81 mg/dL 0.60-1.30 Serum or plasma urea nitrogen/creatinine mass ratio 10 NRG Serum or plasma creatinine measurement with calculation of estimated glomerular filtration rate > NR Serum or plasma glucose measurement (mass/volume) 79 mg/dL 70-105 Serum or plasma calcium measurement (mass/volume) 8.4 mg/dL 8.5-10.1 Serum or plasma total bilirubin measurement (mass/volume) 0.6 mg/dL 0.1-1.0 Serum or plasma alkaline phosphatase measurement (enzymatic activity/volume) 53 U/L 40-136 Serum or plasma aspartate aminotransferase measurement (enzymatic activity/ volume) 15 U/L 5-34 Serum or plasma alanine aminotransferase measurement (enzymatic activity/volume ) 12 U/L 0-55 Serum or plasma protein measurement (mass/volume) 6.0 g/dL 6.4-8.2 Serum or plasma albumin measurement (mass/volume) 3.5 g/dL 3.2-4.5 CALCIUM CORRECTED 8.8 mg/dL 8.5-10.1 Encounters ACCT No. Visit Date/Time Discharge Status Pt. Type Provider Facility Loc./Unit Complaint [id number] 06/04/2018 19:00:00 06/05/2018 16:30:00 DIS Outpatient YASMANY MORALES[facility] [id number] 06/02/2018 20:35:00 06/02/2018 22:58:00 DIS Outpatient FREDDY MENDOZA APRN [facility] ER CHEST PAIN,ABD PAIN [id number] 10/04/2013 15:03:00 10/04/2013 23:59:59 CLS Outpatient AMOS MORALES, KEMAL Guerrero [facility] RAD RT ELBOW PAIN
== END 2018-06-05 16:30 | disposition home or self-care (01) ==
LOC: EDUNIT# 16:34 → ER 16:35 → 4TH 18:00 → UNDOADMOB 18:00 → 4TH 19:00 → SDC 19:00 → UNDODISOB 06-05 16:30 → SDC 06-05 16:30
PROVIDERS: ATTEND Surgery
DX: K80.10 Calculus of gallbladder with chronic cholecystitis without obstruction (principal); Z87.440 Personal history of urinary (tract) infections
CPT/HCPCS: 36415; 76705; 80053; 82150; 83690; 84703; 85007; 85025; 85027; 87081

== ENCOUNTER 2018-11-18 18:53 | Emergency (ER) | payer OTHER ==
[~2018-11-18] VITALS: Ht 160 cm; Wt 91.6 kg
[~2018-11-18 18:53] MED LIST changes: +ACHD5005 PO
[2018-11-18] MEDS ORDERED: LORazepam INJ 2 MG/ML (ATIVAN) VIAL IVP ONE (20:00)
--- NOTE | 2018-11-18 20:07 | ED General ---
General Chief Complaint: General Problems/Pain Stated Complaint: CHEST PAIN X 1 1/2 HRS/VOMITING Nursing Triage Note: PATIENT STATES THAT SHE THAT SHE HAS BEEN HAVING CHEST PAIN AND SOA X1.5 HOURS. SHE STATES THAT SHE VOMITING 2X. DENIES CARDIAC PROBLEMS. Nursing Sepsis Screen: No Definite Risk Source of Information: Patient Exam Limitations: No Limitations History of Present Illness Date Seen by Provider: Nov 18, 2018 Time Seen by Provider: 20:04 Initial Comments To ER with reports of chest pain and vomiting as well as nausea that began one half hours ago. She's had diarrhea for the past few days. She denies fevers or chills. She does have associated shortness of breath. No history of this. Timing/Duration: 1-2 Days Severity: Moderate Associated Systoms: Chest Pain Allergies and Home Medications Allergies Coded Allergies: No Known Drug Allergies (Unverified , 06/02/18) Home Medications Hydrocodone Bit/Acetaminophen 1 Tab Tab, 1-2 TAB PO Q6H PRN for PAIN-MODERATE Prescribed by: KEYA JADE on 06/05/18 1059 Patient Home Medication List Home Medication List Reviewed: Yes Review of Systems Review of Systems Constitutional: see HPI EENTM: see HPI Respiratory: no symptoms reported Cardiovascular: see HPI, chest pain Genitourinary: no symptoms reported Musculoskeletal: see HPI, back pain Skin: no symptoms reported Psychiatric/Neurological: No Symptoms Reported Hematologic/Lymphatic: No Symptoms Reported Past Aaybufc-Axtmkk-Vcyvea Hx Patient Social History Alcohol Use: Denies Use Recreational Drug Use: No Smoking Status: Never a Smoker 2nd Hand Smoke Exposure: No Recent Foreign Travel: No Contact w/Someone Who Travel: No Recent Infectious Disease Expo: No Recent Hopitalizations: No Immunizations Up To Date Date of Influenza Vaccine: Jan 04, 2018 Seasonal Allergies Seasonal Allergies: No Past Medical History Surgeries: Yes (WISDOM TEETH REMOVED) Gallbladder Respiratory: No Cardiac: No Neurological: No Genitourinary: Yes (UTI, PYELONEPHRITIS) Gastrointestinal: No Musculoskeletal: No Endocrine: No HEENT: No Cancer: No Psychosocial: No Integumentary: No Blood Disorders: No Physical Exam Vital Signs Vital Signs - First Documented 11/18/18 11/18/18 19:25 20:08 Temp 97.0 Pulse 71 Resp 18 B/P (MAP) 127/89 (102) Pulse Ox 98 O2 Delivery Room Air Capillary Refill : Less Than 3 Seconds Height, Weight, BMI Height: 5'3.00" Weight: 202lbs. 0oz. 91.367851mc; 33.9 BMI Method:Actual General Appearance: No Apparent Distress, WD/WN Eyes: Bilateral Eye Normal Inspection, Bilateral Eye PERRL, Bilateral Eye EOMI HEENT: PERRL/EOMI, TMs Normal Neck: Full Range of Motion, Normal Inspection Respiratory: Normal Breath Sounds, No Accessory Muscle Use, No Respiratory Distress Cardiovascular: Regular Rate, Rhythm, Normal Peripheral Pulses Gastrointestinal: Normal Bowel Sounds, Non Tender, Soft Extremity: Normal Capillary Refill, Normal Inspection Neurologic/Psychiatric: Alert, Oriented x3, No Motor/Sensory Deficits Skin: Normal Color, Warm/Dry Progress/Results/Core Measures Suspected Sepsis Recent Fever Within 48 Hours: No Infection Criteria Present: Suspected New Infection New/Unexplained Altered Menta: No Sepsis Screen: No Definite Risk SIRS Temperature:97.0 Pulse: 71 Respiratory Rate: 18 Laboratory Tests 11/18/18 20:08: White Blood Count 11.1H Blood Pressure 127 /89 Mean: 102 Laboratory Tests 11/18/18 20:08: Creatinine 0.77, INR Comment 1.2, Platelet Count 326, Total Bilirubin 0.9 Results/Orders Lab Results Laboratory Tests Test 11/18/18 20:08 Range/Units White Blood Count 11.1 H 4.3-11.0 10^3/uL Red Blood Count 4.41 4.35-5.85 10^6/uL Hemoglobin 12.8 11.5-16.0 G/DL Hematocrit 36 35-52 % Mean Corpuscular Volume 82 80-99 FL Mean Corpuscular Hemoglobin 29 25-34 PG Mean Corpuscular Hemoglobin Concent 36 32-36 G/DL Red Cell Distribution Width 11.7 10.0-14.5 % Platelet Count 326 130-400 10^3/uL Mean Platelet Volume 9.3 7.4-10.4 FL Neutrophils (%) (Auto) 82 H 42-75 % Lymphocytes (%) (Auto) 12 12-44 % Monocytes (%) (Auto) 6 0-12 % Eosinophils (%) (Auto) 0 0-10 % Basophils (%) (Auto) 0 0-10 % Neutrophils # (Auto) 9.0 H 1.8-7.8 X 10^3 Lymphocytes # (Auto) 1.3 1.0-4.0 X 10^3 Monocytes # (Auto) 0.7 0.0-1.0 X 10^3 Eosinophils # (Auto) 0.0 0.0-0.3 10^3/uL Basophils # (Auto) 0.0 0.0-0.1 10^3/uL Prothrombin Time 15.3 H 12.2-14.7 SEC INR Comment 1.2 0.8-1.4 Activated Partial Thromboplast Time 28 24-35 SEC D-Dimer < 0.27 0.00-0.49 UG/ML Sodium Level 139 135-145 MMOL/L Potassium Level 3.8 3.6-5.0 MMOL/L Chloride Level 105 98-107 MMOL/L Carbon Dioxide Level 22 21-32 MMOL/L Anion Gap 12 5-14 MMOL/L Blood Urea Nitrogen 12 7-18 MG/DL Creatinine 0.77 0.60-1.30 MG/DL Estimat Glomerular Filtration Rate > 60 BUN/Creatinine Ratio 16 Glucose Level 104 70-105 MG/DL Calcium Level 9.1 8.5-10.1 MG/DL Corrected Calcium 8.8 8.5-10.1 MG/DL Magnesium Level 1.6 1.6-2.4 MG/DL Total Bilirubin 0.9 0.1-1.0 MG/DL Aspartate Amino Transf (AST/SGOT) 100 H 5-34 U/L Alanine Aminotransferase (ALT/SGPT) 70 H 0-55 U/L Alkaline Phosphatase 132 40-136 U/L Myoglobin 30.0 10.0-92.0 NG/ML Troponin I < 0.028 <0.028 NG/ML B-Type Natriuretic Peptide 14.5 <100.0 PG/ML Total Protein 7.6 6.4-8.2 GM/DL Albumin 4.4 3.2-4.5 GM/DL Serum Alcohol < 10 <10 MG/DL My Orders Orders - FREDDY MENDOZA APRN Cbc With Automated Diff (11/18/18 19:57) Magnesium (11/18/18 19:57) Chest 1 View, Ap/Pa Only (11/18/18 19:57) Ekg Tracing (11/18/18 19:57) Cardiac Profile 1 (11/18/18 19:57) Comprehensive Metabolic Panel (11/18/18 19:57) Myoglobin Serum (11/18/18 19:57) Protime With Inr (11/18/18 19:57) Partial Thromboplastin Time (11/18/18 19:57) O2 (11/18/18 19:57) Monitor-Rhythm Ecg Trace Only (11/18/18 19:57) Lipid Panel (11/19/18 06:00) Ed Iv/Invasive Line Start (11/18/18 19:57) BNP (11/18/18 19:57) Alcohol (11/18/18 19:57) Lorazepam Injection (Ativan Injection) (11/18/18 20:00) Antacid Suspension (Mylanta Suspension (11/18/18 20:15) Lidocaine 2% Viscous 15 Ml (Xylocaine Vi (11/18/18 20:15) Ondansetron Injection (Zofran Injectio (11/18/18 20:15) Fibrin Degradation Products (11/18/18 20:08) Ketorolac Injection (Toradol Injection) (11/18/18 21:15) Medications Given in ED Current Medications Medications Dose Ordered Sig/Kaci Route Start Time Stop Time Status Last Admin Dose Admin Al Hydrox/Mg Hydrox/Simethicone 30 ml ONCE ONCE PO 11/18/18 20:15 11/18/18 20:16 DC 11/18/18 20:17 30 ML Ketorolac Tromethamine 30 mg ONCE ONCE IVP 11/18/18 21:15 11/18/18 21:16 DC 11/18/18 21:08 30 MG Lidocaine HCl 15 ml ONCE ONCE PO 11/18/18 20:15 11/18/18 20:16 DC 11/18/18 20:17 15 ML Ondansetron HCl 8 mg ONCE ONCE IVP 11/18/18 20:15 11/18/18 20:16 DC 11/18/18 20:16 8 MG Vital Signs/I&O 11/18/18 11/18/18 19:25 20:08 Temp 97.0 Pulse 71 Resp 18 B/P (MAP) 127/89 (102) Pulse Ox 98 99 O2 Delivery Room Air Capillary Refill : Less Than 3 Seconds Blood Pressure Mean: 102 Departure Communication (Admissions) 8718-chest pain persists. Nausea is gone. I'll order Toradol IV as the GI cocktail did not help. Discussed with her the normal labs and that we could do a CT scan. Patient would prefer not to do a CT scan at this time, and that is certainly reasonable essentially normal labs. I did discuss with her the need to follow up with primary care to reevaluate liver enzymes in about 2 weeks. Impression Primary Impression: Chest pain Qualified Codes: R07.9 - Chest pain, unspecified Disposition: 01 HOME, SELF-CARE Condition: Stable Departure-Patient Inst. Decision time for Depature: 21:45 Referrals: NO,LOCAL PHYSICIAN (PCP) Primary Care Physician FAM ROACH (Family) Primary Care Physician Patient Instructions: Chest Pain That Is Not Caused by the Heart (DC), [id number] FREDDY MENDOZA APRN Nov 18, 2018 20:07
[2018-11-18] MEDS ORDERED: ANTACID SUSP 30 ML UDC (MYLANTA) PO ONE (20:15)
[2018-11-18] MEDS ORDERED: LIDOCAINE 2% VISCOUS 15 ML UDC PO ONE (20:15)
[2018-11-18] MEDS ORDERED: ONDANSETRON 4 MG/2 ML (SDV) Z0FRAN IVP ONE (20:15)
[2018-11-18 20:20] LABS: BASOPHILS % (AUTO) 0 % (0-10); EOSINOPHILS % (AUTO) 0 % (0-10); HEMATOCRIT 36 % (35-52); HEMOGLOBIN 12.8 G/DL (11.5-16.0); LYMPHOCYTES # (AUTO) 1.3 X 10^3 (1.0-4.0); LYMPHOCYTES % (AUTO) 12 % (12-44); MEAN CORPUSCULAR HEMOGLOBIN 29 PG (25-34); MEAN CORPUSCULAR HGB CONC 36 G/DL (32-36); MEAN CORPUSCULAR VOLUME 82 FL (80-99); MEAN PLATELET VOLUME 9.3 FL (7.4-10.4); MONOCYTES # (AUTO) 0.7 X 10^3 (0.0-1.0); MONOCYTES % (AUTO) 6 % (0-12); NEUTROPHILS % (AUTO) 82 % (42-75); PLATELET COUNT 326 10^3/uL (130-400); RED CELL DISTRIBUTION WIDTH 11.7 % (10.0-14.5); WHITE BLOOD COUNT 11.1 10^3/uL (4.3-11.0)
[2018-11-18 20:38] LABS: ALANINE AMINOTRANSFERASE 70 U/L (0-55); ALBUMIN 4.4 GM/DL (3.2-4.5); ALKALINE PHOSPHATASE 132 U/L (40-136); BILIRUBIN,TOTAL 0.9 MG/DL (0.1-1.0); BUN/CREATININE RATIO 16; CALCIUM 9.1 MG/DL (8.5-10.1); CARBON DIOXIDE 22 MMOL/L (21-32); CHLORIDE 105 MMOL/L (98-107); CREATININE SERUM 0.77 MG/DL (0.60-1.30); GFR ESTIMATED > 60; GLUCOSE 104 MG/DL (70-105); MAGNESIUM 1.6 MG/DL (1.6-2.4); POTASSIUM 3.8 MMOL/L (3.6-5.0); SODIUM 139 MMOL/L (135-145); TOTAL PROTEIN 7.6 GM/DL (6.4-8.2)
[2018-11-18 20:55] LABS: INR 1.2 (0.8-1.4); PARTIAL THROMBOPLASTIN TIME 28 SEC (24-35); PROTHROMBIN TIME PATIENT 15.3 SEC (12.2-14.7)
[2018-11-18 20:56] LABS: FIBRIN DEGRADATION PRODUCTS < 0.27 UG/ML (0.00-0.49)
[2018-11-18] MEDS ORDERED: KETOROLAC 30 MG/ML VIAL IVP ONE (21:15)
[2018-11-18 21:55] VITALS: BP 127/89
--- NOTE | 2018-11-19 07:27 | Diagnostic Imaging Report ---
INDICATION: Shortness of breath COMPARISON: None. FINDINGS: Single view of the chest demonstrates clear lungs bilaterally. The heart size is normal. There is no pneumothorax. Osseous structures are normal. IMPRESSION: No acute findings. Normal chest. Dictated by: Dictated on workstation # [id number]
== END 2018-11-18 21:55 | disposition home or self-care (01) ==
LOC: EDUNIT# 18:53 → ER 18:54
DX: R07.9 Chest pain, unspecified (principal); Z87.440 Personal history of urinary (tract) infections
CPT/HCPCS: 36415; 71045; 80053; 80320; 83735; 83874; 83880; 84484; 85025; 85379; 85610; 85730; 93005; 93041

== ENCOUNTER 2019-09-24 22:54 | Emergency (ER) | payer OTHER ==
[~2019-09-24] VITALS: Ht 160 cm; Wt 95.7 kg
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
[2019-09-25] MEDS ORDERED: RX-NAPROXEN (NAPROSYN) 250 MG TAB PPK#4 PO STA (00:25)
[2019-09-25] MEDS ORDERED: RX-CYCLOBENZAPRINE 10 MG (FLEXERIL) TAB PPK#3 PO STA (00:25)
[2019-09-25] MEDS ORDERED: CYCL10TA9 PO (00:25)
[2019-09-25] MEDS ORDERED: NAPR500T8 PO (00:25)
[2019-09-25 00:36] VITALS: BP 125/80
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
== END 2019-09-25 00:35 | disposition home or self-care (01) ==
LOC: EDUNIT# 22:54 → ER 22:55
DX: S09.90XA Unspecified injury of head, initial encounter (principal); S16.1XXA Strain of muscle, fascia and tendon at neck level, initial encounter; S39.012A Strain of muscle, fascia and tendon of lower back, initial encounter; V49.50XA Passenger injured in collision with unspecified motor vehicles in traffic accident, initial encounter
CPT/HCPCS: 70450; 72125; 72128; 72131; 84703